=== PATIENT | male | born 1955 | race Caucasian/White ===

== ENCOUNTER → 2017-02-13 | Outpatient (CLI) | payer OTHER ==
[~2017-02-13] MED LIST: AZATHIOPRINE50 MG PO; FLAGYL 250 MG250 MG PO; FLAGYL500 MG PO; LEVAQUIN 500 M500 M2 PO; LEVO-T112 MCG PO; MESALAMINE4 GM/60 M2 RECTAL; PREDNISONE 10 M10 MG PO; PREDNISONE 20 M20 MG PO; XARELTO15 MG PO
== END ==
LOC: ULTRA 08:58
DX: M79.89 Other specified soft tissue disorders (principal); M79.604 Pain in right leg; Z86.718 Personal history of other venous thrombosis and embolism

== ENCOUNTER → 2017-08-29 | Outpatient (CLI) | payer OTHER | LOC: ULTRA 10:12 | DX: Z86.718 Personal history of other venous thrombosis and embolism (principal) ==